=== PATIENT | female | born 1955 | race Caucasian/White ===

== ENCOUNTER → 2023-07-15 09:02 | Outpatient (REF) | payer MEDICARE, SELFPAY | LOC: RAD 09:02 | PROVIDERS: ATTENDING PHYSICIAN Physician Assistant Medical | DX: Z13.820 Encounter for screening for osteoporosis (principal); Z78.0 Asymptomatic menopausal state | CPT/HCPCS: 77080 ==

== ENCOUNTER → 2023-08-10 15:22 | Outpatient (REF) | payer MEDICARE, SELFPAY | LOC: WDC 15:22 | PROVIDERS: ATTENDING PHYSICIAN Internal Medicine Hematology & Oncology; FAMILY PHYSICIAN Physician Assistant Medical | DX: Z12.31 Encounter for screening mammogram for malignant neoplasm of breast (principal); Z85.3 Personal history of malignant neoplasm of breast; C50.412 Malignant neoplasm of upper-outer quadrant of left female breast | CPT/HCPCS: 77063; 77067 ==

== ENCOUNTER → 2023-08-16 10:01 | Outpatient (REF) | payer MEDICARE, SELFPAY | LOC: WDC 10:01 | PROVIDERS: ATTENDING PHYSICIAN Internal Medicine Hematology & Oncology; FAMILY PHYSICIAN Physician Assistant Medical | DX: R92.8 Other abnormal and inconclusive findings on diagnostic imaging of breast (principal) | CPT/HCPCS: 77065 ==

== ENCOUNTER 2024-02-03 05:39 | Day surgery (SDC) | payer MEDICARE, SELFPAY ==
[2024-02-03] VITALS (21 sets, daily range): BP systolic 158–194; BP diastolic 61–98; BMI 29.5
[2024-02-03 07:41] LABS: Glucose - Point of Care 139 mg/dl (70-99)
[2024-02-03 10:05] LABS: Glucose - Point of Care 129 mg/dl (70-99)
[2024-02-03] MEDS: ZOFRAN 4 MG IV (10:16)
[2024-02-03] MEDS: COMPAZINE 5 MG IV (10:30)
[2024-02-03] MEDS: BENADRYL 25 MG IV (11:24)
[2024-02-03] MEDS: NORMOSOL-R/PLASMALYTE-A 1000 IV (11:47)
[2024-02-03 13:07] LABS: Glucose - Point of Care 187 mg/dl (70-99)
== END 2024-02-03 15:35 | disposition home or self-care (01) ==
LOC: SDS 05:39
PROVIDERS: ATTENDING PHYSICIAN Otolaryngology
DX: H72.91 Unspecified perforation of tympanic membrane, right ear (principal); H90.A11 Conductive hearing loss, unilateral, right ear with restricted hearing on the contralateral side
CPT/HCPCS: 69631; 82962

== ENCOUNTER → 2024-02-11 14:06 | Outpatient (REF) | payer MEDICARE, SELFPAY | LOC: WDC 14:06 | PROVIDERS: ATTENDING PHYSICIAN Internal Medicine Hematology & Oncology; FAMILY PHYSICIAN Physician Assistant Medical | DX: R92.8 Other abnormal and inconclusive findings on diagnostic imaging of breast (principal) | CPT/HCPCS: 77061; 77065 ==

== ENCOUNTER → 2024-08-10 13:47 | Outpatient (REF) | payer MEDICARE, SELFPAY | LOC: WDC 13:47 | PROVIDERS: ATTENDING PHYSICIAN Internal Medicine Hematology & Oncology; FAMILY PHYSICIAN Physician Assistant Medical | DX: Z12.31 Encounter for screening mammogram for malignant neoplasm of breast (principal); C50.412 Malignant neoplasm of upper-outer quadrant of left female breast | CPT/HCPCS: 77063; 77067 ==

== ENCOUNTER → 2025-01-24 09:49 | Outpatient (REF) | payer MEDICARE, SELFPAY | LOC: HWRAD 09:49 | PROVIDERS: ATTENDING PHYSICIAN Specialist; FAMILY PHYSICIAN Physician Assistant Medical | DX: N20.0 Calculus of kidney (principal) | CPT/HCPCS: 74176 ==

== ENCOUNTER → 2025-02-02 09:51 | Outpatient (REF) | payer MEDICARE, SELFPAY ==
[2025-02-02 11:53] LABS: Hematocrit 38.9 % (37.0-47.0); Hemoglobin 13.2 g/dL (12.0-16.0); Mean Corp Hgb Conc. 33.9 g/dL (33.0-37.0); Mean Corpuscular Volume 94.4 fL (81.0-99.0); Nucleated Red Blood Cells % 0 %; Platelet Count 182 10^3/uL (130-400); Red Cell Dist. Width 12.6 % (11.5-14.5)
[2025-02-02 12:39] LABS: ALT (SGPT) 24 U/L (0-35); AST (SGOT) 26 U/L (14-36); Albumin 4.6 g/dl (3.5-5.0); Alkaline Phosphatase 84 U/L (38-126); Blood Urea Nitrogen 12 mg/dl (7-17); Calcium 9.5 mg/dl (8.4-10.2); Carbon Dioxide 27 mmol/L (22-30); Chloride 105 mmol/L (98-107); Glucose 117 mg/dl (70-99); Potassium 4.8 mmol/L (3.5-5.1); Sodium 140 mmol/L (135-145); Total Protein 7.0 g/dl (6.3-8.2); eGFR > 60.00
[2025-02-02 12:48] LABS: Prealbumin (Transthyretin) 24.6 mg/dl (17.6-36.0)
[2025-02-02 13:01] LABS: Vitamin D, 25-OH*** 81.0 ng/mL (30-80)
== END ==
LOC: SDSPAT 09:51
PROVIDERS: ATTENDING PHYSICIAN Surgery; FAMILY PHYSICIAN Physician Assistant Medical
DX: C50.412 Malignant neoplasm of upper-outer quadrant of left female breast (principal); C50.919 Malignant neoplasm of unspecified site of unspecified female breast
CPT/HCPCS: 36415; 80053; 82306; 84134; 85025; 93005

== ENCOUNTER → 2025-02-02 12:46 | Outpatient (REF) | payer MEDICARE, SELFPAY | LOC: RCS 12:46 | PROVIDERS: ATTENDING PHYSICIAN Internal Medicine; FAMILY PHYSICIAN Physician Assistant Medical | DX: C50.412 Malignant neoplasm of upper-outer quadrant of left female breast (principal); I10 Essential (primary) hypertension; Z17.1 Estrogen receptor negative status [ER-] | CPT/HCPCS: 36415; 80053; 82306; 84134; 85025; 93005; 93306; 93356 ==

== ENCOUNTER 2025-02-06 06:05 | Day surgery (SDC) | payer MEDICARE, SELFPAY ==
[2025-02-06 06:57] VITALS: BP 149/70; BMI 27.8
[2025-02-06] MEDS: LOVENOX 40 MG SC (07:01)
[2025-02-06] MEDS: TYLENOL 1000 MG PO (07:01)
[2025-02-06 07:09] LABS: Glucose - Point of Care 133 mg/dl (70-99)
[2025-02-06] MEDS: NORMOSOL-R/PLASMALYTE-A 1000 IV (07:15)
[2025-02-06 08:15] VITALS: BP 123/59
--- NOTE | 2025-02-06 08:18 | W.IMMPOSTOP ---
Surgical Immed Post Op Note
-
Primary Surgeon: Emily
Assisting Surgeon: None
Pre-op Diagnosis: Left breast mass suspicious for recurrent cancer
Post-op Diagnosis: Same
Procedure Performed: Excisional biopsy left breast mass
Anesthesia Type: TIVA
Specimen / Cultures: Left breast mass
Estimated Blood Loss: 4cc
Complications: None
Operative Findings: None
--- NOTE | 2025-02-06 08:19 | OR.RPT ---
Operative Report
Operative Report
Date of procedure: 02/06/2025
Surgeon: Emily
Preoperative diagnosis: Left breast mass suspicious for breast cancer recurrence
Postoperative diagnosis: Same
Procedure: Excisional biopsy left breast mass
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 She had an inflamed lesion in her lumpectomy incision thought to be consistent with a sebaceous cyst. However, after drainage and antibiotic therapy
it did not resolve. Fine-needle aspirate revealed cells suspicious for carcinoma and she presents for excision and histologic analysis with receptor determination,
On the day of the procedure the patient presented to the Same-Day Surgical Services Unit. She verified site and procedure and was prepped. DVT and antibiotic prophylaxis were provided.
She was transferred to the operating room and in the supine position intravenous sedation was delivered. The left breast was prepped and draped in usual sterile fashion and an appropriate timeout procedure was performed by all staff members.
Tissues were anesthetized with 1% lidocaine plain. A wedge excision of the mass including the overlying skin was made sharply with the blade. Dissection was carried down to and including breast parenchyma using a cautery. The specimen was sent
for permanent analysis. Hemostasis was maintained with the cautery. Marcaine 0.5% plain was instilled into all tissues and the wound was closed using simple interrupted 3-0 plain on subcutaneous tissue and simple interrupted 4-0 Monocryl's on
skin. Surgical glue and sterile compressive dressing were applied. All sponge needle instrument counts were correct and the patient was transferred back to the Same Day surgical Unit in stable condition
()
.
[2025-02-06 08:30] VITALS: BP 131/58
[2025-02-06 08:45] VITALS: BP 143/64
== END 2025-02-06 09:00 | disposition home or self-care (01) ==
LOC: SDS 06:05
PROVIDERS: ATTENDING PHYSICIAN Surgery
DX: N63.20 Unspecified lump in the left breast, unspecified quadrant (principal); C50.912 Malignant neoplasm of unspecified site of left female breast; Z85.3 Personal history of malignant neoplasm of breast
CPT/HCPCS: 19101; 82962; 88305; 88341; 88360

== ENCOUNTER 2025-02-27 05:56 | Inpatient (IN) | payer MEDICARE, SELFPAY ==
[2025-02-27] VITALS (13 sets, daily range): BP systolic 104–148; BP diastolic 50–69; BMI 27.8
[2025-02-27] MEDS: TYLENOL 1000 MG PO (07:17)
[2025-02-27] MEDS: LOVENOX 40 MG SC (07:17)
[2025-02-27 07:27] LABS: Glucose - Point of Care 131 mg/dl (70-99)
[2025-02-27] MEDS: NORMOSOL-R/PLASMALYTE-A 1000 IV ×2 (07:27→14:55)
[2025-02-27] MEDS: COLACE PO (08:00)
[2025-02-27] MEDS: GLUCOPHAGE PO (08:00)
--- NOTE | 2025-02-27 09:39 | W.IMMPOSTOP ---
Surgical Immed Post Op Note
-
Primary Surgeon: Emily
Assisting Surgeon: None
Pre-op Diagnosis: Recurrent left breast carcinoma
Post-op Diagnosis: Same
Procedure Performed: Left simple mastectomy
Anesthesia Type: LMA general
Specimen / Cultures: Left breast
Estimated Blood Loss: 20cc
Complications: None
Operative Findings: None
--- NOTE | 2025-02-27 09:40 | OR.RPT ---
Operative Report
Operative Report
Operative date: 02/27/2025
Surgeon: Emily
Preoperative diagnosis: Recurrent left breast carcinoma
Postoperative diagnosis: Recurrent left breast carcinoma
Procedure: Left simple mastectomy
The patient is a 69-year-old female who who presented approximately 2 years ago with triple negative left breast carcinoma. She underwent neoadjuvant chemotherapy followed by lumpectomy and sentinel lymph node mapping and biopsy. She had
experienced a complete pathologic response. Recently she developed a nonhealing papillary lesion in her lumpectomy incision and biopsy revealed recurrent left triple negative breast carcinoma. She presents now for left simple mastectomy.
On the day of the procedure she presented to the same-day surgical services area. She was prepped. DVT and antibiotic prophylaxis were provided and she was transferred to the operating room. In the supine position LMA no anesthesia was induced.
Left breast and chest were prepped and draped in usual sterile fashion. All team members performed an appropriate timeout.
A standard Alexander incision was made sharply with the blade and skin flaps were elevated using the PlasmaBlade. The breast was taken off the chest wall in a superior to inferior direction. Time out of body was noted and the specimen was oriented
for the pathologist and sent immediately to be placed in formalin. There was some additional tissue superiorly that was resected and sent under separate cover. The wound was irrigated and suctioned and hemostasis was verified. The wound was
closed over 2-15 Iranian drains secured to the lower flap with 2-0 nylon. The skin was closed using simple interrupted 2-0 Polysorb on subcutaneous tissue and skin was closed with tito due to the prior radiation therapy. All sponge needle and
instrument counts were correct. A sterile compressive dressing was applied and the patient was transferred to the recovery room in stable condition
([id number])
[2025-02-27 09:52] LABS: Glucose - Point of Care 125 mg/dl (70-99)
[2025-02-27] MEDS: ZOFRAN 4 MG IV (10:17)
[2025-02-27] MEDS: DILAUDID 0.25 MG IV (10:27)
--- NOTE | 2025-02-27 14:39 | PTCARENOTE ---
Patient admitted from pacu post left mastectomy.She is alert and oriented.Patient denies any pain.The left breast dressing and surgical bra are intact without drainage.The patient has 2 left sided poonam drains as well.The patient is in her bed with the
call agustin intact.
[2025-02-27] MEDS: D5/0.45%NSS with KCL 20 MEQ 1000 IV ×2 (15:02→21:16)
[2025-02-27] MEDS: ZESTRIL 40 MG PO (15:07)
[2025-02-27] MEDS: PROTONIX 40 MG PO (15:07)
[2025-02-27] MEDS: VITAMIN D3 (cholecalciferol) 125 MCG PO (15:09)
[2025-02-27] MEDS: LIPITOR 10 MG PO (17:22)
[2025-02-27] MEDS: GLUCOPHAGE 500 MG PO (17:22)
[2025-02-27] MEDS: COLACE 100 MG PO (19:21)
[2025-02-27] MEDS: TYLENOL 500 MG PO (20:16)
[2025-02-28 03:00] VITALS: BP 112/52
--- NOTE | 2025-02-28 03:16 | DOWNTIME ---
There was a [employer] Downtime on 02/28/2025 from 0100 to 02/28/2025 at 0255. Downtime documentation of patient's care, including medication administrations, has been reconciled in the electronic record per guidelines. Refer to the
patient's paper chart under the miscellaneous tab to see printed paper medication records and downtime forms.
[2025-02-28] MEDS: TYLENOL 500 MG PO (03:36)
[2025-02-28 06:41] LABS: Hematocrit 30.4 % (37.0-47.0); Hemoglobin 9.9 g/dL (12.0-16.0)
[2025-02-28 06:49] LABS: Blood Urea Nitrogen 9 mg/dl (7-17); Calcium 8.5 mg/dl (8.4-10.2); Carbon Dioxide 25 mmol/L (22-30); Chloride 109 mmol/L (98-107); Estimated Creatinine Clearance 89 ml/min; Glucose 137 mg/dl (70-99); Potassium 4.5 mmol/L (3.5-5.1); Sodium 136 mmol/L (135-145); eGFR > 60.00
[2025-02-28 07:15] VITALS: BP 124/56
[2025-02-28] MEDS: GLUCOPHAGE 500 MG PO (07:58)
[2025-02-28] MEDS: PROTONIX 40 MG PO (07:58)
[2025-02-28] MEDS: VITAMIN D3 (cholecalciferol) 125 MCG PO (07:59)
[2025-02-28] MEDS: COLACE 100 MG PO (07:59)
[2025-02-28] MEDS: ZESTRIL PO (08:04)
[2025-02-28] MEDS: FOLVITE 1 MG PO (08:04)
--- NOTE | 2025-02-28 08:22 | W.PN.UPDATE ---
Update Note
Progress Note Update
The patient is postop day #1 status post left mastectomy for recurrent left breast carcinoma. She reports that she is sore when moving but otherwise feeling well. She is waiting to eat and has been up and ambulating. Her flaps are viable. She
was at risk for necrosis due to prior radiation therapy and potential tension on the closure of the incision. The drains were stripped. She is clear to be discharged home and will follow-up in our office in a week and a half.
--- NOTE | 2025-02-28 08:38 | W.DS.TRANS ---
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
-
Discharge Instructions:
Discharge Diagnosis/Procedures Recurrent left breast ca
Diet Diabetic, Carb Controlled
Activity No strenuous activity
Driving Restrictions when you feel safe
Bathing Restrictions shower tomorrow with back to the water
Other Services VN
Wound Care change dressing daily, strip drains at least
twice a day and record drainage
Instructions:
Stand-Alone Forms:
Changes to Home Medications: No
Discharge Medications:
DC Medications w/original date entered in [employer]
aspirin 81 mg tablet,delayed release 81 mg PO DAILY Blood Clot Prevention/Tx 08/24/10
Held on 02/28/25. Instructions: Resume on 03/05/25.
hydroxychloroquine 200 mg tablet 300 mg PO DAILY Autoimmune Disorder 08/24/10
hydrocortisone 1 % topical cream 30 gm topical BIDPRN PRN itching #30 grams 02/11/16
atorvastatin 10 mg tablet (Lipitor) 10 mg PO DAILY High Cholesterol 09/03/21
metformin 500 mg tablet 500 mg PO BID Diabetes 09/03/21
cholecalciferol (vitamin D3) 125 mcg (5,000 unit) tablet (Vitamin D3) 125 mcg PO DAILY Supplement 11/26/22
folic acid 800 mcg tablet 0.8 mg PO DAILY Supplement 11/26/22
lisinopril 40 mg tablet 40 mg PO DAILY Blood Pressure 02/26/25
Home Medication Changes
Pending Results: Yes (pathology)
--- NOTE | 2025-02-28 11:03 | CM ---
CM following re: discharge planning.
Reviewed pt's chart, met with pt.
Pt is a 69 year old female, admitted with primary dx of POD#1 Left simple mastectomy
Pt reports she lives with a friend in a 2[place], ni steps, has no children, has supportive niece and a nephew. 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 No VN or SNF history.
CM consult to arrange VN services for drain care noted. Pt lives in [place], a referral to VN vendors in pt's area in [place] made, [facility] in [place] accepted the pt. CM confirmed it with [facility] VN patient service representative Elisa.
Discharge order noted. Pt is aware and she stated her nephew will transport home. IMM reviewed, placed on chart, pt has a copy.
PCP: Bianca JERNIGAN
Pharmacy: [facility].
Please fax discharge summary with discharge instructions to [facility] at [phone]
D/C plan: home with [facility] in [place] and family support. Nephew to transport.
[2025-02-28 11:25] VITALS: BP 128/60
== END 2025-02-28 13:43 | disposition home health service (06) | DRG 583 ==
LOC: 2 SOUTH 05:56
PROVIDERS: ADMITTING PHYSICIAN Surgery
PROC: 0HTU0ZZ Resection of Left Breast, Open Approach (ICD-10-PCS; 2025-02-27)
DX: C50.912 Malignant neoplasm of unspecified site of left female breast (principal); E11.9 Type 2 diabetes mellitus without complications; Z79.84 Long term (current) use of oral hypoglycemic drugs; I10 Essential (primary) hypertension; E78.5 Hyperlipidemia, unspecified; Z17.421 Hormone receptor negative with human epidermal growth factor receptor 2 negative status; Z85.3 Personal history of malignant neoplasm of breast; Z92.3 Personal history of irradiation
CPT/HCPCS: 80048; 82962; 85014; 85018; 88307; 88342